=== PATIENT | male | born 1940 | race American Indian/Alaskan Native ===

== ENCOUNTER 2022-03-06 09:52 | Emergency (ER) | payer MEDICAID, MEDICARE ==
[~2022-03-06] VITALS: Ht 172.7 cm; Wt 75.0 kg
[~2022-03-06 09:52] MED LIST: SEE MED LIST
[2022-03-06 11:13] LABS: EOSINOPHILS % 0.7 % (0.0-5.0); HEMATOCRIT. 40.8 % (42.0-52.0); HEMOGLOBIN. 13.1 g/dL (14.0-18.0); LYMPHOCYTES % 30.7 % (20.0-50.0); MEAN CORPUSCULAR HEMOGLOBIN 24.3 pg (28.0-32.0); MEAN CORPUSCULAR VOLUME 75.7 fL (80.0-94.0); MEAN PLATELET VOLUME 7.5 fl (7.4-10.4); MONOCYTES % 9.4 % (2.0-8.0); NEUTROPHILS % 58.2 % (40.0-76.0); PLATELET 204 x1000/uL (130-400); RED BLOOD CELL COUNT 5.38 mill/uL (4.7-6.1); RED CELL DISTRIBUTION WIDTH 15.8 % (11.6-14.6)
[2022-03-06 11:20] LABS: CHLORIDE 107 mEq/L (98-107)
[2022-03-06 12:50] VITALS: BP 130/89
== END 2022-03-06 13:15 | disposition home or self-care (01) ==
LOC: ER 10:24
DX: R53.1 Weakness (principal); I49.1 Atrial premature depolarization; I45.10 Unspecified right bundle-branch block; E87.8 Other disorders of electrolyte and fluid balance, not elsewhere classified; I10 Essential (primary) hypertension; D64.9 Anemia, unspecified; F17.210 Nicotine dependence, cigarettes, uncomplicated; Z71.6 Tobacco abuse counseling
CPT/HCPCS: 36415; 80048; 85025; 93005; 99284; 99406